=== PATIENT | female | born 1945 | race Two or more races ===

== ENCOUNTER 2021-11-04 08:54 | Emergency (ER) | payer OTHER ==
[~2021-11-04] VITALS: Ht 162.6 cm; Wt 72.6 kg
[2021-11-04] MEDS ORDERED: ATOR10TA PO (09:17)
--- NOTE | 2021-11-04 09:17 | NUR ---
SABAS, PT HAS SYNCOPE, CAME FROM HOME, GENERALIZED WEAKNESS, DECREASED APPETITE
[2021-11-04] MEDS ORDERED: IV NS 0.9% 1,000 ML BAG IV ONE (09:30)
--- NOTE | 2021-11-04 09:30 | NUR ---
LABS / BLOOD DRAWN
[2021-11-04 09:46] LABS: BASOPHILS % (AUTO) 0.4 % (0.0-2.0); EOSINOPHILS % (AUTO) 1.6 % (0.0-6.0); HEMATOCRIT 35 % (33-45); HEMOGLOBIN 11.3 g/dL (11.5-14.8); LYMPHOCYTES # (AUTO) 1.1 K/uL (0.8-4.8); LYMPHOCYTES % (AUTO) 27.8 % (20.0-44.0); MEAN CORPUSCULAR HGB CONC 33 g/dl (31.0-36.0); MEAN CORPUSCULAR VOLUME 82 fL (82-100); MONOCYTES # (AUTO) 0.3 K/uL (0.1-1.30); NEUTROPHILS # (AUTO) 2.5 K/uL (1.8-8.9); NEUTROPHILS % (AUTO) 63.2 % (43.0-81.0); PLATELET COUNT (AUTO) 274 K/uL (150-450); RED BLOOD CELL COUNT(AUTO) 4.19 MIL/uL (4.0-5.2)
--- NOTE | 2021-11-04 09:52 | NUR ---
WILMAN CHAVEZ OF ADMITTING, PT IS REGAL
[2021-11-04 09:58] LABS: CALCIUM, SERUM 8.7 mg/dL (8.5-10.1); CARBON DIOXIDE 26 mmol/L (21-32); CHLORIDE 102 mmol/L (98-107); GLUCOSE 106 mg/dL (74-106); SODIUM SERUM 136 mmol/L (136-145); UREA NITROGEN, BLOOD 18 mg/dL (7-18)
[2021-11-04 10:11] LABS: ALBUMIN 3.7 g/dL (3.4-5.0); ALKALINE PHOSPHATASE 75 U/L (46-116); ASPARTATE AMINOTRANSFERASE 25 U/L (15-37); BILIRUBIN,DIRECT 0.1 mg/dL (0.0-0.2); BILIRUBIN,TOTAL 0.5 mg/dL (0.2-1.0); TOTAL PROTEIN, SERUM 7.2 g/dL (6.4-8.2)
[2021-11-04 10:20] LABS: ALANINE AMINOTRANSFERASE 22 U/L (12-78)
--- NOTE | 2021-11-04 10:50 | NUR ---
PT WISHES TO LEAVE AMA, DOCUMENT FOR AMA SIGNED , EDUCATED PT ON CONSEQUENCES OF LEAVING AMA AND EDUCATED PT AND FAMILY OF DANGERS OF DOING SO , STILL INSISTS ON LEAVING AMA AT THIS TIME.
--- NOTE | 2021-11-04 11:08 | NUR ---
PT SIGNED ALL DOCUMENTS REGARDING LEAVING HOSPITAL AMA, EDUCATED RISK OF HAVING LOW HR MULTIPLE ATTEMPTS TO EDUCATE TO STAY AND RECEIVE TREATMENT BY RN AND MD, STILL REFUSING CARE , ORTHOSTATIC B/P TAKEN MULTIPLE TIMES , PT REMAINS BRADYCARDIA RANGING FROM 50-55 READINGS, LEFT WITH DAUGHTER TO GO HOME REST , HYDRATE, AND EAT SOLID FOOD.
[2021-11-04 11:11] VITALS: BP 132/64
== END 2021-11-04 11:12 | disposition left against medical advice (07) ==
LOC: ER 08:59
DX: R55 Syncope and collapse (principal); R00.1 Bradycardia, unspecified; I95.9 Hypotension, unspecified; Z20.822 Contact with and (suspected) exposure to COVID-19; I10 Essential (primary) hypertension; Z79.899 Other long term (current) drug therapy
CPT/HCPCS: 36415; 70450-TC; 71045-TC; 80048-TC; 80076-TC; 83605-TC; 84484-TC; 85025-TC; 87040-TC; C9803; J7030